=== PATIENT | male | born 1965 | race Caucasian/White ===

== ENCOUNTER 2023-12-10 08:48 | Emergency (ER) | payer MEDICARE, SELFPAY ==
[2023-12-10 08:51] VITALS: BP 133/83; PULSE 97; RESP 18; TEMP 36.1; O2SAT 97; BMI 27.2
[2023-12-10 08:57] LABS: Glucose, Whole Blood 492 mg/dL (60-115)
--- NOTE | 2023-12-10 10:12 | ECG_ITS ---
Test Reason : CP Blood Pressure : / mmHG Vent. Rate : 081 BPM Atrial Rate : 081 BPM P-R Int : 178 ms QRS Dur : 082 ms QT Int : 386 ms P-R-T Axes : 036 -23 018 degrees QTc Int : 448 ms Normal sinus rhythm Inferior infarct , age undetermined Possible Anterior infarct , age undetermined Abnormal ECG No previous ECGs available Referred By: Marisol Liriano Electronically Signed By:DEBBY EVERETT
--- NOTE | 2023-12-10 10:14 | ED_ITS ---
HPI - Recheck/Abnormal Lab/Rx General Chief Complaint: Recheck/Abnormal Lab/Rx Stated Complaint: High blood sugar Time Seen by Provider: 12/10/23 09:01 History of Present Illness HPI narrative: Patient is a 58-year-old male presents today with having polyuria polydipsia generalized malaise weakness. Patient had a sugar of 610 had been out of his medication he did have a donut prior to that sugar. Was noted to have a sugar before breakfast of 467 today then came to the ED for help. Patient states he is without his diabetes medication for the last few weeks. Denies any chest pain denies any new back pain denies any diaphoresis denies any fever chills coughing congestion upper respiratory symptoms. Related Data Previous Rx's Medication Instructions Recorded glipizide 5 mg tablet 5 mg PO DAILY #7 tabs 12/10/23 metformin 1,000 mg tablet 1,000 mg PO BID 7 days #14 tabs 12/10/23 Allergies Allergy/AdvReac Type Severity Reaction Status Date / Time Penicillins [PCN] Allergy Rash Verified 12/10/23 08:50 Review of Systems 2 Review of Systems: Positive generalized malaise weakness Yes all other systems are reviewed and are negative [facility] Past Medical History Attestation statement: The following information was validated with the patient. Social History Social History Advance Directives: No Advance Directives Information Provided: Yes Physical Exam 2 Vital Signs: Vital Signs: Last Vital Signs Temp 98.3 F 12/10/23 11:39 Pulse 86 12/10/23 11:39 Resp 18 12/10/23 11:39 BP 122/79 12/10/23 11:39 Pulse Ox 95 12/10/23 11:39 O2 Del Method Room Air 12/10/23 11:39 BMI result Body Mass Index 27.2 Appearance: Alert. Oriented X3. No acute distress. Eyes: Pupils equal, round and reactive to light. ENT: Pharynx normal. Neck: Normal inspection. Neck supple. No lymph nodes noted. No crepitus CVS: Normal heart rate and rhythm. Pulses normal. Normal S1 and S2 Respiratory: No respiratory distress. Breath sounds normal. No Wheezing. No rales Abdomen: Soft and nontender. No rigidity. No distention. good BS x4 Skin: Skin warm and dry. Normal skin color. Normal skin turgor. Extremities: No lower extremity edema. Neurovascular intact to all extremities. No Lacerations. No Rash Neuro: Oriented X 3. No motor deficit. No sensory deficit. Moving all extermities. No slurred speech Medications Administered Generic Name Dose Route Start Last Admin Trade Name Freq PRN Reason Stop Dose Admin Sodium Chloride 1,000 mls @ 999 mls/hr 12/10/23 12:45 12/10/23 13:06 Ns IV 12/10/23 13:45 999 mls/hr .Q1H1M ATUL Administration Discontinued Medications Generic Name Dose Route Start Last Admin Trade Name Freq PRN Reason Stop Dose Admin Sodium Chloride 1,000 mls @ 999 mls/hr 12/10/23 10:15 12/10/23 11:30 Ns IV 12/10/23 11:15 Infused .Q1H1M ATUL Infusion Insulin Human Regular 9 unit 12/10/23 10:13 12/10/23 11:16 Insulin Regular, Human 100 Unit/Ml 3 Ml Vial 0.1 unit/kg (9 unit) 12/10/23 10:14 9 unit IVPUSH Administration ONCE ONE Medical Decision Making Medical Decision Making [facility] Narrative: Patient's blood sugar at home was over 600. In the ED patient's sugar was initially 490s. Given IV fluids insulin. Monitor in the emergency department. Patient has been out of his medication including metformin and glipizide. After insulin IV fluids x2 L patient symptom improved sugars down to 300. There is no anion gap is normal bicarb there was no evidence for diabetic ketoacidosis. Patient's symptoms likely secondary to noncompliance. Already has a refill of the medication but is not ready for another 3-4 days. Patient is given new prescription for the next 7 days. Explained the need to take his medication on a regular basis. Patient states understanding. Will discharge home. Differential Diagnosis Differential Diagnoses: The differential diagnosis associated with the presentation includes Diabetic ketoacidosis, diabetes Admission/Observation Consideration of admission/observation: Escalation of care including admission/observation considered Lab Data [facility] Lab Attestation statement: I reviewed the patient's lab results. 12/10/23 10:37 12/10/23 10:37 Labs: Lab Results 12/10/23 12/10/23 12/10/23 Range/Units 08:54 10:37 10:48 WBC 6.4 (4.8-10.8) X10*3/uL RBC 5.06 (4.60-5.80) X10*6/uL Hgb 13.7 L (14.0-18.0) g/dl Hct 39.7 L (42.0-52.0) % MCV 78.5 L (80.0-98.0) fL MCH 27.1 (27.0-33.0) pg MCHC 34.5 (31.0-36.0) g/dl RDW 13.0 (11.0-16.0) % Plt Count 204 (160-400) X10*3/uL MPV 10.2 (9.4-12.4) fL Immature Gran % (Auto) 0.5 H (0.0-0.4) % Neut % (Auto) 54.8 (45-73) % Lymph % (Auto) 31.9 (20-40) % [place] % (Auto) 7.8 (2-11) % Eos % (Auto) 4.1 H (0-4) % Baso % (Auto) 0.9 (0-2) % Lymph # (Auto) 2.0 (1.2-4.9) X10*3/uL [place] # (Auto) 0.5 (0.1-1.2) X10*3/uL Eos # (Auto) 0.3 (0.0-0.4) X10*3/uL Baso # (Auto) 0.1 (0.0-0.2) X10*3/uL Abs Immat Gran (auto) 0.03 (0.00-0.03) X10*3/uL Absolute Neuts (auto) 3.5 (2.0-8.3) x10*3/uL Absolute Nucleated RBC 0.000 (0.0-0.012) X10*3/uL Nucleated RBC % (auto) 0.0 (0.0-0.2) /100WBC VBG pH 7.40 (7.32-7.43) VBG pCO2 39 mmHg VBG pO2 47 mmHg VBG HCO3 24 (22-26) mmol/L VBG O2 Saturation 76.0 % VBG Base Excess 0.2 mmol/L Sodium 133 L (135-145) mmol/L Potassium 3.9 (3.3-5.1) mmol/L Chloride 99 (96-108) mmol/L Carbon Dioxide 23 (22-29) mmol/L Anion Gap 15 (12-20) BUN 13 (9-16) mg/dL Creatinine 1.24 (0.5-1.4) mg/dL Estim Creat Clear Calc 70.4 Estimated GFR 60 POC Glucose 492 H* (60-115) mg/dL Random Glucose 479 H* (60-115) mg/dL Calcium 8.9 (8.4-10.2) mg/dL Beta-Hydroxybutyrate 1.19 H (0.02-0.27) mmol/L 12/10/23 12/10/23 Range/Units 11:10 11:56 WBC (4.8-10.8) X10*3/uL RBC (4.60-5.80) X10*6/uL Hgb (14.0-18.0) g/dl Hct (42.0-52.0) % MCV (80.0-98.0) fL MCH (27.0-33.0) pg MCHC (31.0-36.0) g/dl RDW (11.0-16.0) % Plt Count (160-400) X10*3/uL MPV (9.4-12.4) fL Immature Gran % (Auto) (0.0-0.4) % Neut % (Auto) (45-73) % Lymph % (Auto) (20-40) % [place] % (Auto) (2-11) % Eos % (Auto) (0-4) % Baso % (Auto) (0-2) % Lymph # (Auto) (1.2-4.9) X10*3/uL [place] # (Auto) (0.1-1.2) X10*3/uL Eos # (Auto) (0.0-0.4) X10*3/uL Baso # (Auto) (0.0-0.2) X10*3/uL Abs Immat Gran (auto) (0.00-0.03) X10*3/uL Absolute Neuts (auto) (2.0-8.3) x10*3/uL Absolute Nucleated RBC (0.0-0.012) X10*3/uL Nucleated RBC % (auto) (0.0-0.2) /100WBC VBG pH (7.32-7.43) VBG pCO2 mmHg VBG pO2 mmHg VBG HCO3 (22-26) mmol/L VBG O2 Saturation % VBG Base Excess mmol/L Sodium (135-145) mmol/L Potassium (3.3-5.1) mmol/L Chloride (96-108) mmol/L Carbon Dioxide (22-29) mmol/L Anion Gap (12-20) BUN (9-16) mg/dL Creatinine (0.5-1.4) mg/dL Estim Creat Clear Calc Estimated GFR POC Glucose 397 H* 325 H (60-115) mg/dL Random Glucose (60-115) mg/dL Calcium (8.4-10.2) mg/dL Beta-Hydroxybutyrate (0.02-0.27) mmol/L Independent Interpretation I performed an independent interpretation of an: EKG (Sinus heart rate is 60 ID QRS QTC within normal limits is Q-waves over the inferior leads. There is no acute ST segment elevation) External Record Review No significant old records here at [facility] Chronic Conditions Patient?s care impacted by: Diabetes Social Determinants Patient?s care significantly limited by Social Determinants of Health including: Problems related to primary support group Discharge Plan Discharge Clinical Impression: Acute hyperglycemia Patient Disposition: Home, Self-Care Instructions: Diabetic Hyperglycemia (ED) Prescriptions: New metformin 1,000 mg tablet 1,000 mg PO BID 7 Days Qty: 14 0RF glipizide 5 mg tablet 5 mg PO DAILY Qty: 7 0RF Referrals: Massimo De La Torre NP [Primary Care Provider] - 12/13/23
[2023-12-10] MEDS: 0.9 % Sodium Chloride 1,000 ML 999 ML IV ×2 (10:38→13:06)
[2023-12-10 10:42] LABS: MANUAL DIFF FLAG NO
[2023-12-10 10:46] LABS: Basophils Absolute Auto 0.1 X10*3/uL (0.0-0.2); Basophils Percent Auto 0.9 % (0-2); Eosinophils Absolute Auto 0.3 X10*3/uL (0.0-0.4); Eosinophils Percent Auto 4.1 % (0-4); Hematocrit 39.7 % (42.0-52.0); Hemoglobin 13.7 g/dl (14.0-18.0); Imm Gran Abs Auto 0.03 X10*3/uL (0.00-0.03); Imm Gran Pct Auto 0.5 % (0.0-0.4); Lymphocytes Percent Auto 31.9 % (20-40); Mean Corpuscular HGB Conc 34.5 g/dl (31.0-36.0); Mean Corpuscular Hemoglobin 27.1 pg (27.0-33.0); Mean Corpuscular Volume 78.5 fL (80.0-98.0); Mean Platelet Volume 10.2 fL (9.4-12.4); Monocytes Absolute Auto 0.5 X10*3/uL (0.1-1.2); Monocytes Percent Auto 7.8 % (2-11); Neutrophils Absolute Auto 3.5 x10*3/uL (2.0-8.3); Neutrophils Percent Auto 54.8 % (45-73); Platelet Count 204 X10*3/uL (160-400); Red Blood Count 5.06 X10*6/uL (4.60-5.80); White Blood Count 6.4 X10*3/uL (4.8-10.8)
[2023-12-10 10:58] LABS: Venous Blood Gas Refer to POC result
[2023-12-10 10:59] LABS: VBG Base Excess 0.2 mmol/L; VBG HCO3 24 mmol/L (22-26); VBG pCO2 39 mmHg; VBG pO2 47 mmHg
[2023-12-10 11:14] LABS: Glucose, Whole Blood 397 mg/dL (60-115)
[2023-12-10] MEDS: Insulin Regular, Human 100 UNIT/ML 3 ML VIAL 9 UNIT IVPUSH (11:16)
[2023-12-10 11:39] VITALS: BP 122/79; PULSE 86; RESP 18; TEMP 36.8; O2SAT 95
[2023-12-10 12:01] LABS: Glucose, Whole Blood 325 mg/dL (60-115)
[2023-12-10 12:08] LABS: Beta-Hydroxybutyrate 1.19 mmol/L (0.02-0.27)
[2023-12-10 12:13] LABS: Anion Gap 15 (12-20); Blood Urea Nitrogen 13 mg/dL (9-16); Calcium 8.9 mg/dL (8.4-10.2); Carbon Dioxide 23 mmol/L (22-29); Chloride 99 mmol/L (96-108); Creatinine Clr Calc Pharmacy 70.4; Estimated Glomerular Filt Rate 60; Glucose Random 479 mg/dL (60-115); Potassium 3.9 mmol/L (3.3-5.1); Sodium 133 mmol/L (135-145)
[2023-12-10 13:38] LABS: Glucose, Whole Blood 300 mg/dL (60-115)
[2023-12-10] MEDS: metFORMIN HCl 1,000 MG TABLET 1000 MG PO (13:48)
[2023-12-10] MEDS: glipiZIDE 5 MG TABLET PO (13:48)
== END 2023-12-10 13:51 | disposition home or self-care (01) ==
PROVIDERS: Emergency Provider Emergency Medicine Emergency Medical Services; PCP Nurse Practitioner Community Health
DX: E11.65 Type 2 diabetes mellitus with hyperglycemia (principal); Z91.148 Patient's other noncompliance with medication regimen for other reason
CPT/HCPCS: 36415; 80048; 82010; 82803; 82947; 85025; 93005; 96361; 96374; 99284; 99285

== ENCOUNTER → 2023-12-10 10:12 | Outpatient (BNV) | payer OTHER, SELFPAY | PROVIDERS: Emergency Provider Emergency Medicine Emergency Medical Services; PCP Nurse Practitioner Community Health; Visit Provider Internal Medicine | DX: R07.9 Chest pain, unspecified (principal) | CPT/HCPCS: 93010 ==

== ENCOUNTER 2024-05-19 15:18 | Emergency (ER) | payer MEDICARE, SELFPAY ==
--- NOTE | ~2024-05-19 | XR_ITS ---
EXAMINATION: XR SHOULDER, LEFT CLINICAL INFORMATION: Pain COMPARISON: None available. TECHNIQUE: AP external rotation, Grashey, scapular Y, and axillary views of the left shoulder. FINDINGS: The bones and soft tissues are notable for minor calcific tendinitis changes. No fracture. Glenohumeral and acromioclavicular alignment is anatomic with normal joint space. No abnormal soft tissue calcifications. XR/XR shoulder LT min 2V IMPRESSION: Calcific tendinitis changes as above.
[2024-05-19 15:31] VITALS: BP 138/82; PULSE 96; O2SAT 98
[2024-05-19 15:48] VITALS: BP 140/79; PULSE 91; RESP 18; TEMP 36.1; O2SAT 98; BMI 28.3
--- NOTE | 2024-05-19 15:48 | ED_ITS ---
HPI - Extremity Injury (Upper) General Chief Complaint: Extremity Problem Stated Complaint: L shoulder x3 weeks Time Seen by Provider: 05/19/24 22:26 History of Present Illness ED Provider: Staci AGUILAR narrative: The patient is a 59-year-old male who has been having problems with left shoulder pain for 3 weeks Related Data Previous Rx's ?Medication ?Instructions ?Recorded glipizide 5 mg tablet 5 mg PO DAILY #7 tabs 12/10/23 metformin 1,000 mg tablet 1,000 mg PO BID 7 days #14 tabs 12/10/23 Allergies Allergy/AdvReac Type Severity Reaction Status Date / Time Penicillins [PCN] Allergy Rash Verified 05/19/24 15:53 Review of Systems 2 Review of Systems: Yes all other systems are reviewed and are negative [facility] Social History Social History Smoked in Last 30 Days: No Use of substances other than those prescribed or required for medical reasons: No Advance Directives: No Advance Directives Information Provided: Yes Do you have a plan to hurt others: No Plan Physical Exam 2 Vital Signs: Vital Signs: Last Vital Signs Temp 97 F 05/19/24 15:48 Pulse 91 05/19/24 15:48 Resp 18 05/19/24 15:48 BP 140/79 H 05/19/24 15:48 Pulse Ox 98 05/19/24 15:48 O2 Del Method Room Air 05/19/24 15:48 BMI result Body Mass Index 28.3 Const: Other: The patient is awake, alert, pleasant, cooperative. He does not appear in acute distress or toxic. HEENT: Other: Face is symmetrical. Mucous membranes moist. Eyes: Other: Pupils are round equal, conjunctivae clear Neck: Neck: Yes no JVD Resp: Effort & Inspection: normal respiratory effort Auscultation: clear to auscultation bilaterally Cardio: Rate: regular rate Rhythm: regular rhythm Heart sounds: S1 normal heart sound present and S2 normal heart sound present Skin: Other: The skin of the shoulder is normal. The skin generally is normal. Neuro: Other: The patient is awake and alert with a normal mental status. He has a normal strength and sensation in the left hand Extrem: Other: No deformity of the left shoulder. The patient has diffuse tenderness around the glenohumeral joint. I can put the shoulder through a fairly good range of motion without significant discomfort. Course Course Course Narrative: This is an RME: Additional HPI, ROS, PE not included below will be deferred to primary provider. RME assessment and note performed by: Flaca Hinton PA-C This is a 62-iste-mhm-male who presents to the ER with complaints of left shoulder pain x 3 weeks. Endorsing tingling in his arm, difficult to move left arm due to pain. Reporting injury 10 years ago after fall on ice - no fx at that time, was told it was bursitis. No CP/SOB Plan: Labs, EKG, xr Medications Administered Discontinued Medications Generic Name Dose Route Start Last Admin Trade Name Freq PRN Reason Stop Dose Admin Ketorolac Tromethamine 30 mg 05/19/24 22:37 05/19/24 22:47 Ketorolac Tromethamine 30 Mg/Ml Vial IM 05/19/24 22:38 30 mg ONCE ONE Administration Medical Decision Making Medical Decision Making MDM Narrative: The patient is an 79-year-old male with a history of diabetes who presents with 3 weeks of left shoulder pain. No recent trauma. He sustained a left shoulder injury many years ago but no recent injury. He says at times the pain has been so bad he has been in tears. He took an ambulance to the hospital today. While waiting to be seen his acute pain has subsided. An EKG was done that showed no acute ischemic changes. Troponin is normal after 3 weeks of pain. CRP is undetectable. The patient's pain is fairly reproducible on exam. X-ray of the left shoulder apparently displays calcific tendinitis. I suspect the patient's syndrome is probably some kind of a tendinitis syndrome. He will be given a sling and advised to follow up with Orthopedics. Lab Data 05/19/24 16:41 05/19/24 16:41 Labs: Lab Results 05/19/24 Range/Units 16:41 WBC 7.4 (4.8-10.8) X10*3/uL RBC 5.06 (4.60-5.80) X10*6/uL Hgb 14.3 (14.0-18.0) g/dl Hct 42.0 (42.0-52.0) % MCV 83.0 (80.0-98.0) fL MCH 28.3 (27.0-33.0) pg MCHC 34.0 (31.0-36.0) g/dl RDW 13.4 (11.0-16.0) % Plt Count 254 (160-400) X10*3/uL MPV 9.1 L (9.4-12.4) fL Immature Gran % (Auto) 0.3 (0.0-0.4) % Neut % (Auto) 54.5 (45-73) % Lymph % (Auto) 34.4 (20-40) % [place] % (Auto) 6.9 (2-11) % Eos % (Auto) 3.1 (0-4) % Baso % (Auto) 0.8 (0-2) % Lymph # (Auto) 2.5 (1.2-4.9) X10*3/uL [place] # (Auto) 0.5 (0.1-1.2) X10*3/uL Eos # (Auto) 0.2 (0.0-0.4) X10*3/uL Baso # (Auto) 0.1 (0.0-0.2) X10*3/uL Abs Immat Gran (auto) 0.02 (0.00-0.03) X10*3/uL Absolute Neuts (auto) 4.0 (2.0-8.3) x10*3/uL Absolute Nucleated RBC 0.000 (0.0-0.012) X10*3/uL Nucleated RBC % (auto) 0.0 (0.0-0.2) /100WBC ESR 3 (0-15) MM/HR Sodium 141 (135-145) mmol/L Potassium 3.9 (3.3-5.1) mmol/L Chloride 109 H (96-108) mmol/L Carbon Dioxide 24 (22-29) mmol/L Anion Gap 12 (12-20) BUN 20 H (9-16) mg/dL Creatinine 1.22 (0.5-1.4) mg/dL Estim Creat Clear Calc 74.6 Estimated GFR > 60 Random Glucose 148 H (60-115) mg/dL Calcium 9.9 D (8.4-10.2) mg/dL Total Bilirubin 0.6 (0.0-1.0) mg/dL Direct Bilirubin 0.2 (0.0-0.5) mg/dL AST 17 (5-37) U/L ALT 20 (0-40) U/L Alkaline Phosphatase 45 (39-117) U/L Troponin I High Sens 2.7 (<3.5-35.0) ng/L C-Reactive Protein < 0.10 (< or = 0.50) mg/dL Total Protein 7.5 (6.5-8.0) g/dL Albumin 4.9 (3.5-5.0) g/dL Independent Interpretation I performed an independent interpretation of an: EKG Interpretation: EKG at 17:08 shows normal sinus rhythm at 80 beats per minute. No definite acute ischemic changes. Discharge Plan Discharge Clinical Impression: Acute pain of left shoulder, Calcific tendonitis of left shoulder Patient Disposition: Home, Self-Care Additional Instructions: Please wear the sling as needed if it is helpful. Using ice to the shoulder may be helpful as well. You may apply ice for 10-15 minutes at a time every few hours. Always keep a dry cloth between an ice bag and your skin. Continue to use acetaminophen and your diclofenac gel. Your x-ray was read as showing ?calcific tendinitis. ? This may be the explanation for your pain. You will need to see an orthopedist to discuss this pain further. The on-call orthopedist for [facility] today is Dr. Odom. You have been given his name and number. Ultimately you may follow up with [facility], the practice where you were seen with Dr. Somers in the past. Please contact an orthopedic office on Wednesday to arrange an appointment for further management of this problem. Stay in touch with your regular doctor as well. Return to the emergency room if significantly worse. Prescriptions: No Action metformin 1,000 mg tablet 1,000 mg PO BID 7 Days Qty: 14 0RF glipizide 5 mg tablet 5 mg PO DAILY Qty: 7 0RF Referrals: [facility] [Provider Group] (left shoulder pain/calcific tendonitis) Massimo De La Torre NP [Primary Care Provider] - (Left shoulder pain) Juan Alberto Odom MD [Physician] - (left shoulder pain/calcific tendonitis) Print Language: Colombian
--- NOTE | 2024-05-19 15:54 | ECG_ITS ---
Test Reason : LEFT ARM PAIN Blood Pressure : / mmHG Vent. Rate : 086 BPM Atrial Rate : 086 BPM P-R Int : 162 ms QRS Dur : 086 ms QT Int : 392 ms P-R-T Axes : 149 201 166 degrees QTc Int : 469 ms Suspect limb lead reversal, interpretation assumes no reversal Unusual P axis, possible ectopic atrial rhythm with Fusion complexes Lateral infarct (cited on or before 10-DEC-2023) Inferior infarct (cited on or before 10-DEC-2023) Abnormal ECG When compared with ECG of 10-DEC-2023 10:51, Ectopic atrial rhythm has replaced Sinus rhythm QRS axis Shifted left Questionable change in initial forces of Lateral leads T wave inversion now evident in Lateral leads Repeat EKG Referred By: Flaca Hinton Electronically Signed By:CHERRI VOGEL MD
[2024-05-19 16:47] LABS: MANUAL DIFF FLAG NO
[2024-05-19 16:48] LABS: Basophils Absolute Auto 0.1 X10*3/uL (0.0-0.2); Basophils Percent Auto 0.8 % (0-2); Eosinophils Absolute Auto 0.2 X10*3/uL (0.0-0.4); Eosinophils Percent Auto 3.1 % (0-4); Hemoglobin 14.3 g/dl (14.0-18.0); Imm Gran Abs Auto 0.02 X10*3/uL (0.00-0.03); Imm Gran Pct Auto 0.3 % (0.0-0.4); Lymphocytes Absolute Auto 2.5 X10*3/uL (1.2-4.9); Lymphocytes Percent Auto 34.4 % (20-40); Mean Corpuscular Hemoglobin 28.3 pg (27.0-33.0); Mean Platelet Volume 9.1 fL (9.4-12.4); Monocytes Absolute Auto 0.5 X10*3/uL (0.1-1.2); Monocytes Percent Auto 6.9 % (2-11); Neutrophils Percent Auto 54.5 % (45-73); Platelet Count 254 X10*3/uL (160-400); Red Blood Count 5.06 X10*6/uL (4.60-5.80); Red Cell Distribution Width 13.4 % (11.0-16.0); White Blood Count 7.4 X10*3/uL (4.8-10.8)
[2024-05-19 17:03] LABS: Alanine Aminotransferase 20 U/L (0-40); Albumin Level 4.9 g/dL (3.5-5.0); Alkaline Phosphatase 45 U/L (39-117); Anion Gap 12 (12-20); Aspartate Amino Transferase 17 U/L (5-37); Bilirubin Direct 0.2 mg/dL (0.0-0.5); Bilirubin Total 0.6 mg/dL (0.0-1.0); Blood Urea Nitrogen 20 mg/dL (9-16); C Reactive Protein < 0.10 mg/dL (< or = 0.50); Calcium 9.9 mg/dL (8.4-10.2); Carbon Dioxide 24 mmol/L (22-29); Chloride 109 mmol/L (96-108); Creatinine Clr Calc Pharmacy 74.6; Estimated Glomerular Filt Rate > 60; Glucose Random 148 mg/dL (60-115); Potassium 3.9 mmol/L (3.3-5.1); Sodium 141 mmol/L (135-145); Total Protein 7.5 g/dL (6.5-8.0)
--- NOTE | 2024-05-19 17:08 | ECG_ITS ---
Test Reason : RETAKE Blood Pressure : / mmHG Vent. Rate : 080 BPM Atrial Rate : 080 BPM P-R Int : 172 ms QRS Dur : 086 ms QT Int : 390 ms P-R-T Axes : 041 -22 010 degrees QTc Int : 449 ms Normal sinus rhythm Septal infarct , age undetermined Inferior infarct (cited on or before 10-DEC-2023) Abnormal ECG When compared with ECG of 19-MAY-2024 16:44, Sinus rhythm has replaced Ectopic atrial rhythm QRS axis Shifted right Criteria for Lateral infarct are no longer Present Referred By: Tru Small Electronically Signed By:CEHRRI VOGEL MD
[2024-05-19 17:10] LABS: Troponin-I High Sensitivity 2.7 ng/L (<3.5-35.0)
[2024-05-19 17:33] LABS: Erythrocyte Sedimentation Rate 3 MM/HR (0-15)
[2024-05-19] MEDS: Ketorolac Tromethamine 30 MG/ML VIAL IM (22:47)
== END 2024-05-20 06:33 | disposition home or self-care (01) ==
PROVIDERS: Physician Assistant Medical; Emergency Provider Emergency Medicine; PCP Nurse Practitioner Community Health
DX: M25.512 Pain in left shoulder (principal); M75.32 Calcific tendinitis of left shoulder
CPT/HCPCS: 36415; 73030; 80048; 80076; 84484; 85025; 85652; 86140; 93005; 96372; 99284; J1885

== ENCOUNTER → 2024-05-19 15:54 | Outpatient (BNV) | payer MEDICARE, SELFPAY | PROVIDERS: Emergency Provider Emergency Medicine; PCP Nurse Practitioner Community Health; Visit Provider Internal Medicine Cardiovascular Disease | DX: R94.31 Abnormal electrocardiogram [ECG] [EKG] (principal) | CPT/HCPCS: 93010 ==